=== PATIENT | female | born 1980 | race Two or more races ===

== ENCOUNTER 2018-04-09 00:03 | Emergency (ER) | payer BC ==
[2018-04-09] MEDS ORDERED: IPRATROPIUM/ALBUTEROL 0.5-2.5 MG/3 ML AMPUL NEB ONE (02:08)
[2018-04-09] MEDS ORDERED: METHYLPREDNISOLONE INJ 125 MG/2 ML SDV IV ONE (02:09)
[2018-04-09] MEDS ORDERED: NORMAL SALINE 1000 ML 1,000 ML IV ONE (02:09)
--- NOTE | 2018-04-09 02:15 | ER Document Report ---
ED General - General Chief Complaint: Cough Stated Complaint: DIFFICULTY BREATHING, COUGH Time Seen by Provider: 04/09/18 01:53 Notes: Patient is a 37-year-old female presented to the emergency department complaining of cough and congestion since yesterday. Patient also states she has a headache. Patient states she does have asthma and has taken her albuterol inhaler x8 today. Patient also admits to everyday cigarette smoking. Patient states she had pneumonia 6 months ago and was admitted for same. Pt. admits to subjective fever. Patient denies any vomiting or diarrhea. Denies dysuria or vaginal discharge. Patient states she has never been intubated for her asthma in the past. Past medical history: Asthma Medications: Albuterol Allergies: Latex Surgical history: Tonsillectomy Patient admits to cigarette smoking, denies illicit drug use or EtOH use. TRAVEL OUTSIDE OF THE [place] IN LAST 30 DAYS: No - Related Data Allergies/Adverse Reactions: latex Allergy (Verified 04/09/18 00:07) Past Medical History - General Information source: Patient - Social History Smoking Status: Current Every Day Smoker Frequency of alcohol use: None Drug Abuse: None Lives with: Family Family History: Reviewed & Not Pertinent Review of Systems - Review of Systems Constitutional: See HPI EENT: See HPI Cardiovascular: Dyspnea. denies: Chest pain, Palpitations Respiratory: See HPI Gastrointestinal: No symptoms reported Genitourinary: No symptoms reported Female Genitourinary: No symptoms reported Musculoskeletal: No symptoms reported Skin: No symptoms reported Hematologic/Lymphatic: No symptoms reported Neurological/Psychological: No symptoms reported Physical Exam - Vital signs Vitals: Temp Pulse Resp BP Pulse Ox 97.9 F 99 28 H 137/87 H 100 04/09/18 00:26 04/09/18 00:26 04/09/18 00:26 04/09/18 00:26 04/09/18 00:26 - Notes Notes: GENERAL: Alert, interacts well. Lying in bed in no obvious distress. Upon waking the patient up she becomes tachypneic and starts hyperventilating at a rate of 30. HEAD: Normocephalic, atraumatic. EYES: Pupils equal, round, and reactive to light. Extraocular movements intact. ENT: Oral mucosa moist, tongue midline. Nares patent, TM's intact, nonerythematous, nonbulging. Pharynx within normal limits, no exudate or palatal petechiae noted. NECK: Full range of motion. Supple. Trachea midline. LUNGS: End expiratory wheeze noted bilateral apices, diminished bilateral bases. Upon coaching she is able to settle her respiratory rate down to 24. HEART: Regular rate and rhythm. No murmur ABDOMEN: Soft, non-tender. Non-distended. Bowel sounds present in all 4 quadrants. EXTREMITIES: Moves all 4 extremities spontaneously. No edema, normal radial and dorsalis pedis pulses bilaterally. No cyanosis. BACK: no cervical, thoracic, lumbar midline tenderness. No saddle anesthesia, normal distal neurovascular exam. NEUROLOGICAL: Alert and oriented x3. Normal speech. cranial nerves II through XII grossly intact. PSYCH: Normal affect, normal mood. SKIN: Warm, dry, normal turgor. No rashes or lesions noted. Course - Re-evaluation Re-evalutation: 04/09/18 04:52 Patient states she feels a whole lot better. Patient states she no longer has any respiratory distress. Reassessment of lung sounds reveals clear lung sounds in all bah. No work of breathing. No tachycardia noted, continues without fever. Patient states she only has an albuterol inhaler and it is from her primary care provider in [place]. Patient is requesting a refill at this time. Discussed refilling her albuterol inhaler and giving her prednisone at this time. Return precautions discussed. Chest x-ray shows no signs of pneumonia, pneumothorax, fractures. - Vital Signs Vital signs: Temp Pulse Resp BP Pulse Ox 97.9 F 99 19 116/70 96 04/09/18 00:26 04/09/18 00:26 04/09/18 04:06 04/09/18 04:06 04/09/18 04:06 Discharge - Discharge Clinical Impression: Acute bronchospasm Upper respiratory infection Qualifiers: URI type: unspecified viral URI Qualified Code(s): J06.9 - Acute upper respiratory infection, unspecified Condition: Stable Disposition: HOME, SELF-CARE Instructions: Upper Respiratory Illness ([facility]), Viral Syndrome ([facility]), Bronchospasm ([facility]) Prescriptions: Albuterol Sulfate [Proair HFA Inhalation Aerosol 8.5 gm MDI] 2 puff IH Q4H PRN # 1 mdi PRN Reason: Prednisone [Deltasone 20 mg Tablet] 3 tab PO DAILY 5 Days tablet Referrals: ULISES LEMOS MD [Primary Care Provider] - Follow up as needed
--- NOTE | 2018-04-09 03:37 | RADIOLOGY REPORT (SQ) ---
CLINICAL HISTORY: SOB COMPARISON: None. TECHNIQUE: XR CHEST 2 VIEWS 04/09/2018 2:09 AM SEED PACKER FINDINGS: Cardiac silhouette is normal in size. Lungs are clear without consolidation, atelectasis, mass or edema. There is no pleural effusion. There is no pneumothorax. There are no acute osseous findings. IMPRESSION: Clear lungs.
[2018-04-09 05:10] VITALS: BP 106/63
== END 2018-04-09 05:17 | disposition home or self-care (01) ==
LOC: ER 00:03
DX: J45.909 Unspecified asthma, uncomplicated (principal); J06.9 Acute upper respiratory infection, unspecified; B97.89 Other viral agents as the cause of diseases classified elsewhere; R05 Cough; R51 Headache; Z79.899 Other long term (current) drug therapy; F17.210 Nicotine dependence, cigarettes, uncomplicated; Z87.01 Personal history of pneumonia (recurrent); Z91.040 Latex allergy status
CPT/HCPCS: 94640; 99283; 96361; 96374; 71046; J2930; J7030; J7620

== ENCOUNTER → 2019-03-17 | Outpatient (CLI) | payer BC ==
[2019-03-17 12:49] LABS: ABSOLUTE BASOPHILS # (AUTO) 0.1 10^3/uL (0.0-0.2); ABSOLUTE EOSINOPHILS # (AUTO) 0.1 10^3/uL (0.0-0.6); ABSOLUTE LYMPHOCYTES (AUTO) 2.4 10^3/uL (0.5-4.7); ABSOLUTE MONOCYTES (AUTO) 0.5 10^3/uL (0.1-1.4); ABSOLUTE NEUT (AUTO) 3.8 10^3/uL (1.7-8.2); BASOPHILS % (AUTO) 0.9 % (0-2); EOSINOPHILS % (AUTO) 1.8 % (0-6); HEMATOCRIT 29.1 % (36.0-47.0); HEMOGLOBIN 9.7 g/dL (12.0-15.5); LYMPHOCYTES % (AUTO) 34.7 % (13-45); MEAN CORPUSCULAR HEMOGLOBIN 24.4 pg (27.0-33.4); MEAN CORPUSCULAR HGB CONC 33.1 g/dL (32.0-36.0); MEAN CORPUSCULAR VOLUME 74 fl (80-97); MONOCYTES % (AUTO) 6.7 % (3-13); PLATELET COUNT 436 10^3/uL (150-450); RED BLOOD COUNT 3.96 10^6/uL (3.72-5.28); RED CELL DISTRIBUTION WIDTH 16.5 % (11.5-14.0); SEGMENTED NEUTROPHILS % (AUTO) 55.9 % (42-78); TOTAL CELLS COUNTED % (AUTO) 100 %; WHITE BLOOD COUNT 6.9 10^3/uL (4.0-10.5)
[2019-03-17 13:11] LABS: ALBUMIN 4.1 g/dL (3.5-5.0); ALKALINE PHOSPHATASE 82 U/L (38-126); ANION GAP 8 (5-19); ASPARTATE AMINO TRANSFERASE 27 U/L (14-36); BILIRUBIN,DIRECT 0.1 mg/dL (0.0-0.4); BILIRUBIN,TOTAL 0.3 mg/dL (0.2-1.3); BLOOD UREA NITROGEN 8 mg/dL (7-20); CALCIUM 8.9 mg/dL (8.4-10.2); CARBON DIOXIDE 28 mmol/L (22-30); CHLORIDE 101 mmol/L (98-107); GLUCOSE 91 mg/dL (75-110); POTASSIUM 4.2 mmol/L (3.6-5.0); TOTAL PROTEIN 7.3 g/dL (6.3-8.2)
[2019-03-17 13:23] LABS: FREE T3 3.95 pg/mL (2.77-5.27)
[2019-03-17 13:37] LABS: THYROID STIMULATING HORMONE 0.77 uIU/mL (0.47-4.68)
[2019-03-18 07:01] LABS: T3 UPTAKE (RESIN) 22 % (24-39)
== END ==
LOC: LAB 12:24
PROVIDERS: ATTEND Specialist
DX: N94.4 Primary dysmenorrhea (principal); N92.0 Excessive and frequent menstruation with regular cycle
CPT/HCPCS: 36415; 80053; 84436; 84443; 84479; 84481; 85025

== ENCOUNTER 2019-05-26 06:05 | Day surgery (SDC) | payer BC ==
[2019-05-16 11:04] LABS: MEAN CORPUSCULAR HEMOGLOBIN 21.4 pg (27.0-33.4); MEAN CORPUSCULAR HGB CONC 32.3 g/dL (32.0-36.0); MEAN CORPUSCULAR VOLUME 66 fl (80-97); PLATELET COUNT 397 10^3/uL (150-450); RED BLOOD COUNT 4.67 10^6/uL (3.72-5.28); RED CELL DISTRIBUTION WIDTH 17.6 % (11.5-14.0); WHITE BLOOD COUNT 8.2 10^3/uL (4.0-10.5)
[2019-05-16 11:08] LABS: APPEARANCE,URINE SLIGHTLY-CLOUDY; BILIRUBIN,URINE NEGATIVE (NEGATIVE); COLOR,URINE YELLOW; GLUCOSE, URINE NEGATIVE (NEGATIVE); KETONES,URINE NEGATIVE (NEGATIVE); LEUKOCYTE ESTERASE,URINE NEGATIVE (NEGATIVE); NITRITE,URINE NEGATIVE (NEGATIVE); PROTEIN,URINE NEGATIVE (NEGATIVE); URINE SPECIFIC GRAVITY 1.008; UROBILINOGEN,URINE NEGATIVE mg/dL (<2.0)
[2019-05-16 11:34] LABS: ANION GAP 9 (5-19); BLOOD UREA NITROGEN 10 mg/dL (7-20); CALCIUM 9.3 mg/dL (8.4-10.2); CARBON DIOXIDE 28 mmol/L (22-30); CHLORIDE 100 mmol/L (98-107); GLUCOSE 94 mg/dL (75-110); POTASSIUM 4.6 mmol/L (3.6-5.0)
[~2019-05-26 06:05] MED LIST: ALBUTEROL SULFATE 0.083% NEB 2.5 MG/3 ML AMPUL NEB PRN; CEFAZOLIN 1 GM/D5W RTU 1 GM/50 ML RTUPB IV ONE; CEFAZOLIN 1 GM/D5W RTU 1 GM/50 ML RTUPB IV PRN; LACTATED RINGERS 1000 ML IV PRN; LIDOCAINE 0.5% INJ-PF (5 MG/ML) 50 ML SDV SUBCUT PRN
[2019-05-26] MEDS ORDERED: ALBUTEROL SULFATE 0.083% NEB 2.5 MG/3 ML AMPUL NEB ONE (06:13)
[2019-05-26] MEDS ORDERED: LIDOCAINE 1% INJ-PF (10 MG/ML) 30 ML SDV ONE (07:29)
[2019-05-26] MEDS ORDERED: PROPOFOL INJ 200 MG/20 ML VIAL IV ONE ×2 (07:50→07:51)
[2019-05-26] MEDS ORDERED: MIDAZOLAM 2 MG/2 ML INJ ONE (07:50)
[2019-05-26] MEDS ORDERED: KETAMINE HCL INJ 500 MG/10 ML VIAL ONE (07:50)
[2019-05-26] MEDS ORDERED: FENTANYL CITRATE INJ/PF 100 MCG/2 ML AMPUL ONE (07:50)
[2019-05-26] MEDS ORDERED: DIPHENHYDRAMINE HCL 50 MG/ML VIAL IV PRN (08:10)
[2019-05-26] MEDS ORDERED: MORPHINE SULFATE 10 MG/ML INJ IV PRN (08:10)
[2019-05-26] MEDS ORDERED: MEPERIDINE HCL/PF INJ 25 MG/1 ML DISP.SYRIN IV PRN (08:10)
[2019-05-26] MEDS ORDERED: FENTANYL CITRATE INJ/PF 100 MCG/2 ML AMPUL IV PRN ×3 (08:10)
[2019-05-26] MEDS ORDERED: PROMETHAZINE HCL INJ 25 MG/1 ML VIAL IV PRN ×2 (08:10)
[2019-05-26] MEDS ORDERED: OXYCODONE-ACETAMINOPHEN 5-325 MG TABLET ONE (09:26)
--- NOTE | 2019-05-26 09:28 | Operative Report ---
Operative Report DATE OF SURGERY: 05/26/19 PREOPERATIVE DIAGNOSIS: Menorrhagia POSTOPERATIVE DIAGNOSIS: Same OPERATION: Hysteroscopy NovaSure ablation SURGEON: ULISES LEMOS ANESTHESIA: LMAC TISSUE REMOVED OR ALTERED: None COMPLICATIONS: None ESTIMATED BLOOD LOSS: 5 mL's INTRAOPERATIVE FINDINGS: Normal endometrial cavity no polyps or fibroids noted PROCEDURE: INDICATIONS FOR PROCEDURE: The patient had abnormal uterine bleeding for several months unresponsive to usual outpatient management. The usual risks of bleeding, infection, anesthesia, and damage to organs and tissues had been discussed with the patient and understood. PROCEDURE: The patient was taken to the operating room, placed in a modified lithotomy position. After adequate anesthesia was ascertained, we prepped and draped in the usual manner for a hysteroscopy . Paracervical block done. The cervix readily admitted dilators. A single-tooth tenaculum was placed on the anterior lip of the cervix after anesthesia was instilled. Hysteroscopy ensued. A endometrial cavity was noted and novasure device deployed, integrity confirmed and fired rehysteroscopy demonstrated good burn throughout. 5.5L x 2.9 W
[2019-05-26] MEDS ORDERED: OXYCODONE-ACETAMINOPHEN 5-325 MG TABLET PO PRN (09:30)
[2019-05-26] MEDS ORDERED: PROMETHAZINE HCL INJ 25 MG/1 ML VIAL IM PRN (09:30)
[2019-05-26] MEDS ORDERED: MORPHINE INJ 4 MG DOSE (EDIT ROUTE) IM PRN ×2 (09:30→09:49)
[2019-05-26] MEDS ORDERED: KETOROLAC TROMETHAMINE 60 MG/2 ML SDV ONE (10:17)
[2019-05-26] MEDS ORDERED: ONDANSETRON HCL INJ/PF 4 MG/2 ML SDV ONE (10:17)
[2019-05-26 11:12] VITALS: BP 158/97
[2019-05-26] MEDS ORDERED: IBUPROFEN 800 MG TABLET PO SCH (14:00)
== END 2019-05-26 11:00 | disposition home or self-care (01) ==
LOC: OROUT 06:05
PROVIDERS: ATTEND Specialist
DX: N92.0 Excessive and frequent menstruation with regular cycle (principal); E66.9 Obesity, unspecified; Z91.040 Latex allergy status; J45.909 Unspecified asthma, uncomplicated
CPT/HCPCS: 86900; 86901; 36415; 86850; 85027; 81025; 80048; 81001; 58563; J2250; J0690; J1885; J3010; J3490 ×2; J2405; J2704

== ENCOUNTER → 2019-12-02 | Outpatient (CLI) | payer BC ==
[2019-12-02 11:49] LABS: ABSOLUTE BASOPHILS # (AUTO) 0.1 10^3/uL (0.0-0.2); ABSOLUTE EOSINOPHILS # (AUTO) 0.2 10^3/uL (0.0-0.6); ABSOLUTE LYMPHOCYTES (AUTO) 3.6 10^3/uL (0.5-4.7); ABSOLUTE MONOCYTES (AUTO) 0.5 10^3/uL (0.1-1.4); ABSOLUTE NEUT (AUTO) 4.2 10^3/uL (1.7-8.2); BASOPHILS % (AUTO) 0.8 % (0-2); EOSINOPHILS % (AUTO) 2.8 % (0-6); HEMATOCRIT 37.2 % (36.0-47.0); HEMOGLOBIN 12.7 g/dL (12.0-15.5); LYMPHOCYTES % (AUTO) 41.5 % (13-45); MEAN CORPUSCULAR HEMOGLOBIN 26.4 pg (27.0-33.4); MEAN CORPUSCULAR VOLUME 78 fl (80-97); PLATELET COUNT 382 10^3/uL (150-450); RED CELL DISTRIBUTION WIDTH 15.3 % (11.5-14.0); SEGMENTED NEUTROPHILS % (AUTO) 48.9 % (42-78); TOTAL CELLS COUNTED % (AUTO) 100 %; WHITE BLOOD COUNT 8.7 10^3/uL (4.0-10.5)
[2019-12-02 12:00] LABS: ALBUMIN 4.1 g/dL (3.5-5.0); ALKALINE PHOSPHATASE 89 U/L (38-126); ANION GAP 6 (5-19); ASPARTATE AMINO TRANSFERASE 28 U/L (14-36); BILIRUBIN,TOTAL 0.4 mg/dL (0.2-1.3); BLOOD UREA NITROGEN 14 mg/dL (7-20); CARBON DIOXIDE 27 mmol/L (22-30); CHLORIDE 103 mmol/L (98-107); CHOLESTEROL 245.76 mg/dL (0-200); GLUCOSE 102 mg/dL (75-110); POTASSIUM 4.1 mmol/L (3.6-5.0); TRIGLYCERIDES 210 mg/dL (<150)
[2019-12-02 12:13] LABS: DIRECT LDL 151 mg/dL (<100)
[2019-12-02 13:08] LABS: FOLATE > 20.00 ng/mL (>2.76)
== END ==
LOC: OD 10:35
PROVIDERS: ATTEND Nurse Practitioner Family
DX: L83 Acanthosis nigricans (principal); E04.9 Nontoxic goiter, unspecified; E78.5 Hyperlipidemia, unspecified; E55.9 Vitamin D deficiency, unspecified; R20.0 Anesthesia of skin
CPT/HCPCS: 36415; 80053; 80061; 82306; 82607; 82746; 83036; 83735; 85025; 86376

== ENCOUNTER 2020-02-04 12:20 | Day surgery (SDC) | payer BC ==
[2020-01-30 14:16] LABS: HEMOGLOBIN 12.4 g/dL (12.0-15.5); MEAN CORPUSCULAR HEMOGLOBIN 26.7 pg (27.0-33.4); MEAN CORPUSCULAR HGB CONC 34.5 g/dL (32.0-36.0); MEAN CORPUSCULAR VOLUME 77 fl (80-97); PLATELET COUNT 303 10^3/uL (150-450); RED BLOOD COUNT 4.65 10^6/uL (3.72-5.28); RED CELL DISTRIBUTION WIDTH 15.7 % (11.5-14.0); WHITE BLOOD COUNT 8.8 10^3/uL (4.0-10.5)
[2020-01-30 14:39] LABS: ANION GAP 11 (5-19); BLOOD UREA NITROGEN 13 mg/dL (7-20); CALCIUM 9.2 mg/dL (8.4-10.2); CARBON DIOXIDE 23 mmol/L (22-30); CHLORIDE 103 mmol/L (98-107); GLUCOSE 97 mg/dL (75-110); POTASSIUM 4.1 mmol/L (3.6-5.0)
--- NOTE | 2020-01-30 21:18 | EKG REPORT ---
SEVERITY:- NORMAL ECG - SINUS RHYTHM : Confirmed by: Audrey Brown MD 30-Jan-2020 21:18:08
[~2020-02-04 12:20] MED LIST changes: -ALBUTEROL SULFATE 0.083% NEB 2.5 MG/3 ML AMPUL NEB PRN; -CEFAZOLIN 1 GM/D5W RTU 1 GM/50 ML RTUPB IV ONE; -CEFAZOLIN 1 GM/D5W RTU 1 GM/50 ML RTUPB IV PRN; +CEFAZOLIN 2 GM/D5W RTU 2 GM/50 ML RTUPB IV PRN; +DEXAMETHASONE SOD PHOSPHATE INJ 4 MG/1 ML VIAL ONE; -LACTATED RINGERS 1000 ML IV PRN; +LIDOCAINE 2% INJ-PF (20 MG/ML) 2 ML AMPUL ONE; +METOCLOPRAMIDE HCL INJ/PF 10 MG/2 ML SDV ONE; +ONDANSETRON HCL INJ/PF 4 MG/2 ML SDV ONE; +PHENYLEPHRINE HCL INJ/PF 10 MG/1 ML SDV ONE; +SUCCINYLCHOLINE CHLORIDE INJ 200 MG/10 ML VIAL ONE
[2020-02-04] MEDS ORDERED: CEFAZOLIN 2 GM/D5W RTU 2 GM/50 ML RTUPB IV ONE (13:03)
[2020-02-04] MEDS: LACTATED RINGERS 1000 ML IV PRN ×2 (13:15→19:00)
[2020-02-04] MEDS ORDERED: MIDAZOLAM 2 MG/2 ML INJ ONE (13:50)
[2020-02-04] MEDS ORDERED: FENTANYL CITRATE INJ/PF 100 MCG/2 ML AMPUL ONE (13:50)
[2020-02-04] MEDS ORDERED: HYDROMORPHONE HCL INJ/PF 2 MG/ML AMPULE ONE (13:51)
[2020-02-04] MEDS ORDERED: PROPOFOL INJ 200 MG/20 ML VIAL IV ONE (13:51)
[2020-02-04] MEDS ORDERED: BUPIVACAINE HCL 0.5%/EPI 1:200000 INJ 1.8 ML CARTRIDGE ONE (13:53)
[2020-02-04] MEDS ORDERED: OXYMETAZOLINE HCL 0.05% NASAL SPRAY 15 ML BOTTLE ONE (13:53)
[2020-02-04] MEDS ORDERED: LIDOCAINE 2%/EPINEPHRINE INJ 1.7 ML CARTRIDGE ONE (13:53)
[2020-02-04 14:16] LABS: ALBUMIN 4.2 g/dL (3.5-5.0); CALCIUM 8.9 mg/dL (8.4-10.2)
[2020-02-04] MEDS ORDERED: DIPHENHYDRAMINE HCL 50 MG/ML VIAL IV PRN (14:37)
[2020-02-04] MEDS ORDERED: PROMETHAZINE HCL INJ 25 MG/1 ML VIAL IV PRN ×2 (14:37)
[2020-02-04] MEDS ORDERED: FENTANYL CITRATE INJ/PF 100 MCG/2 ML AMPUL IV PRN ×3 (14:37)
[2020-02-04] MEDS ORDERED: ONDANSETRON HCL INJ/PF 4 MG/2 ML SDV IV PRN (14:37)
[2020-02-04] MEDS ORDERED: MEPERIDINE HCL/PF INJ 25 MG/1 ML DISP.SYRIN IV PRN (14:37)
[2020-02-04] MEDS ORDERED: OXYCODONE-ACETAMINOPHEN 5-325 MG TABLET PO PRN ×2 (14:37)
[2020-02-04] MEDS ORDERED: ACETAMINOPHEN 325 MG TABLET PO PRN ×2 (17:45→18:38)
[2020-02-04] MEDS ORDERED: MORPHINE SULFATE 10 MG/ML INJ IV PRN (18:38)
[2020-02-04] MEDS: HYDROCODONE/ACETAMINOPHEN 5-325 MG TABLET PO PRN (20:15)
[2020-02-04 20:54] LABS: ALBUMIN 4.3 g/dL (3.5-5.0); CALCIUM 8.5 mg/dL (8.4-10.2); PHOSPHORUS 3.5 mg/dL (2.5-4.5)
--- NOTE | 2020-02-04 21:38 | Operative Report ---
Operative Report-[facility] Operative Report: Date of procedure: February 04, 2020 Preoperative diagnoses: 1. Right thyroid nodule papillary thyroid cancer as diagnosed by fine-needle aspiration biopsy 2. Multinodular goiter Postoperative diagnoses: 1. Right thyroid nodule papillary thyroid cancer as diagnosed by fine-needle aspiration biopsy 2. Multinodular goiter Operation performed: 1. Total Thyroidectomy (CPT CODE 11634) 2. Intraoperative nerve monitoring (NIM) Primary Surgeon of Record: Dr. Jhonny Bhakta Assisting surgeon: Dr. Toro Del Cid Anesthetic: General endotracheal tube anesthesia Anesthesia provider: JENNY Mccollum Estimated blood loss: 20 mL Fluids: 2000 mL Urine output: Complications: None Drains: None Sponge count: Verified Needle Count: Verified Materials forwarded as specimen: 1. Total thyroid gland with marking suture at the right thyroid lobe which contain the dominant right thyroid nodule Findings: 1. Multinodular goiter with a right dominant thyroid nodule. 2. Bilateral parathyroid gland prospects were identified and preserved. 3. The bilateral recurrent laryngeal nerves were noted to be deeper within the tissue and these areas were preserved and not disruptive during the case. 4. There were was no surrounding lymphadenopathy or other findings of concern. Indications: This is a 39-year-old female patient patient who has been seen and evaluated [place] [facility]. The patient had been referred by Dr. Haley with history of a multinodular goiter with right dominant nodule that was [place] category 6 on FNAB for papillary thyroid cancer. There was an extensive discussion held with the patient with plan made to proceed with a total thyroidectomy versus a right thyroid lobectomy with possible left thyroid lobe completion which the patient verbalized a clear understanding of and preferred to proceed with a total thyroidectomy. The patient voiced an understanding of her medical findings to include relating to her thyroid disorder and desired proceed with a total thyroidectomy. The patient voiced an understanding of the procedure/surgery and all of the risks and complications, and consent was obtained. Procedure: The patient was taken to the main operating room and placed on the operating room table in the supine position. Appropriate monitors were placed. Using mask and IV access, general anesthesia was induced. The patient was next transorally intubated without difficulty. The patient was then positioned for thyroid surgery. The patient's anterior neck had a planned incision site marked with a surgical marking pen followed by infiltration with local anesthetic with epinephrine. The patient was then prepped and draped in a sterile fashion for thyroid surgery. Next, an incision was made down through the level of the subcutaneous tissues and platysma. Using blunt and sharp dissection as well as Bovie and bipolar electrocautery skin/soft tissue flaps were elevated in a sub- platysmal fashion without difficulty. The strap muscles were next identified and the midline was divided allowing the strap muscles to be mobilized and reflected laterally. Attention was turned to the left side, and dissection proceeded utilizing blunt and sharp dissection. Findings are as noted above. The superior and inferior poles of the thyroid lobe were clearly identified. The vasculature in these areas was clearly identified and divided using bipolar electrocautery and/or the Harmonic handpiece. During this process of mobilizing the left thyroid lobe there were parathyroid gland prospects that were identified and preserved. At this point the thyroid gland was released from the area of Plata's ligament and mobilized onto the anterior tracheal wall. Next, the neck was thoroughly irrigated and suctioned. Additional hemostasis was provided with bipolar electrocautery. Findings were also as noted above. At this point, the right strap muscles were addressed in a similar manner. Dissection proceeded utilizing blunt and sharp dissection. The right strap muscles were reflected laterally. Findings are as noted above. The superior and inferior poles of the thyroid lobe were clearly identified. The vasculature in these areas was clearly identified as on the left. During this process of mobilizing the right thyroid lobe there were parathyroid gland prospects that were identified and preserved. At this point the thyroid gland was released from the area of Plata's ligament and mobilized onto the anterior tracheal wall and removed. Next, the neck was thoroughly irrigated and suctioned. Additional hemostasis was provided with bipolar electrocautery. Findings were also as noted above. Adequate hemostasis was noted and the strap muscles were re-approximated in the midline with Vicryl suture. The platysma was also re-approximated with Vicryl suture. 5-0 Monocryl suture was next utilized for re-approximation of the deep dermal tissue layer and for re-approximation of the skin margins via a continuous dermal suture. Next, the skin was cleaned and dried followed by placement of Mastisol, Steri- Strips, and a fluffs pressure dressing. The patient was then returned to the anesthesia staff and was allowed to emerge from general anesthesia. The patient was extubated in the main operating room and was then transported to the post- anesthesia recovery unit in stable condition. There were no complications.
[2020-02-04] MEDS: MORPHINE SULFATE 10 MG/ML INJ IV PRN (23:00)
[2020-02-05] MEDS: HYDROCODONE/ACETAMINOPHEN 5-325 MG TABLET PO PRN ×2 (07:00→17:33)
[2020-02-05 08:44] LABS: ALBUMIN 3.9 g/dL (3.5-5.0); CALCIUM 8.4 mg/dL (8.4-10.2); PHOSPHORUS 4.9 mg/dL (2.5-4.5)
[2020-02-05] MEDS: MORPHINE SULFATE 10 MG/ML INJ IV PRN (09:23)
[2020-02-05] MEDS ORDERED: INFLUENZA QUAD (6MOS+) 2020-21 VAC 0.5 ML SYR IM ONE (09:45)
[2020-02-05 15:39] LABS: ALBUMIN 3.8 g/dL (3.5-5.0); CALCIUM 8.4 mg/dL (8.4-10.2); PHOSPHORUS 4.5 mg/dL (2.5-4.5)
[2020-02-05 18:59] VITALS: BP 146/84
== END 2020-02-05 19:17 | disposition home or self-care (01) ==
LOC: OROUT 12:20 → 4W 18:20 → OROUT 02-05 19:17
PROVIDERS: ATTEND Otolaryngology
DX: C73 Malignant neoplasm of thyroid gland (principal); E04.2 Nontoxic multinodular goiter; G47.33 Obstructive sleep apnea (adult) (pediatric); J45.909 Unspecified asthma, uncomplicated; E66.9 Obesity, unspecified; Z79.899 Other long term (current) drug therapy; Z03.818 Encounter for observation for suspected exposure to other biological agents ruled out; Z87.891 Personal history of nicotine dependence
CPT/HCPCS: 60240; 93005; 36415 ×2; 82040; 82310; 83735; 84100; 85027; 81025; 80048; 83970; 88307 ×2; 93010; 00320; C1758; U0003; J2250; J3490 ×4; J1100; J3010; J2765; J2270 ×2; J1170; J2370; J0330; J2405; J7120; J2704; J0690; C9803; 320; 87635

== ENCOUNTER → 2020-03-06 | Outpatient (CLI) | payer BC ==
--- NOTE | 2020-03-06 10:00 | ER RDC ASSESSMENT REPORT ---
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 - Symptoms Subjective Fever([place] feverish): No Chills: No Muscule Aches: No Runny Nose: No Sore Throat: No Cough (New or worsening chronic cough): Yes Shortness of breath: No Nausea or Vomiting: Yes Headache: Yes Abdominal Pain: No Diarrhea(3 or more loose stools in last 24 hours): No - Do you have any of the following Chronic lung disease: Asthma or emphysema or COPD: Yes Chronic Lung Disease Comment: Asthma Cystic Fibrosis: No Diabetes: No High Blood Pressure: No Cardiovascular Disease: No Chronic Kidney Disease: No Chronic Liver Disease: No Chronic blood disorder like Sickle Cell Disease: No Weak immune system due to disease or medication: No Neurologic condition that limits movement: No Developmental delay - Moderate to Severe: No Recent (within past 2 weeks) or current : No Morbid Obesity (>100 pounds over ideal weight): No Other Comment: She reports history of hypothyroid and bipolar. - Objective Temperature: 98.6 F Pulse Rate: 96 Respiratory Rate: 16 Blood Pressure: 129/82 O2 Sat by Pulse Oximetry: 95 Objective: Patient is a well-appearing 39-year-old female, who presents today for COVID-19 screening. Disposition: Home; Selfcare General - General Stated Complaint: Upper respiratory symptoms Mode of Arrival: Ambulatory Information source: Patient Notes: The patient was evaluated during the global COVID-19 pandemic. That diagnosis was suspected/considered upon initial presentation. Their evaluation, treatment, and testing was consistent with current guidelines for patients who present with complaints or symptoms that may be related to COVID-19. Patient reports having close contact exposure to a COVID-19 lab confirmed positive individual. - HPI Patient complains to provider of: Upper respiratory symptoms Onset: Last week Onset/Duration: Constant, Persistent, Worse Quality of pain: No pain Severity: None Pain Level: Denies Associated symptoms: Nonproductive cough, Headache, Nausea Exacerbated by: Denies Relieved by: Denies Similar symptoms previously: No Recently seen / treated by doctor: No - Related Data Allergies/Adverse Reactions: latex Allergy (Verified 02/04/20 13:52) HIVES, SWELLING Past Medical History - Social History Smoking Status: Former Smoker Cigarette use (# per day): No - Quit smoking 3 years ago Chew tobacco use (# tins/day): No Smoking Education Provided: Yes Frequency of alcohol use: Occasional Drug Abuse: None Occupation: fiberglass technician Lives with: Family Family History: Reviewed & Not Pertinent Patient has suicidal ideation: No Patient has homicidal ideation: No - Past Medical History Cardiac Medical History: Denies: Hx Coronary Artery Disease, Hx Heart Attack, Hx Hypertension Pulmonary Medical History: Reports: Hx Asthma - MILD/ SEASONAL, Hx Bronchitis Denies: Hx COPD, Hx Pneumonia Neurological Medical History: Denies: Hx Cerebrovascular Accident, Hx Seizures Renal/ Medical History: Denies: Hx Peritoneal Dialysis Musculoskeletal Medical History: Denies Hx Arthritis Psychiatric Medical History: Denies: Hx Depression Physical Exam - General General appearance: Appears well In distress: None Notes: PHYSICAL EXAMINATION: GENERAL: Well-appearing with No Acute Distress noted. HEAD: Atraumatic, Normocephalic. EYES: Sclera anicteric, Conjunctiva are pink and moist. ENT: Nares patent. Moist mucous membranes. NECK: Normal range of motion, supple without lymphadenopathy. LUNGS: CTAB and equal. No wheezes rales or rhonchi. HEART: Regular rate and rhythm without murmurs. ABDOMEN: Soft, nontender, normal bowel sounds, no guarding. EXTREMITIES: Normal range of motion, no pitting edema. No cyanosis. BACK: No midline or CVA tenderness. No step-off or deformity. NEUROLOGICAL: Cranial nerves grossly intact. Normal speech. Normal gait. PSYCH: Calm, Cooperative, and answers questions appropriately. Normal mood and affect. SKIN: Warm, Dry, Normal color and Turgor, No obvious lesions or rash noted. Diagnostic Results Laboratory Results: Patient notified of NEGATIVE results on Rapid Flu (A & B) and Rapid Strep. Advised Throat Culture and COVID testing are PENDING, and they will be notified of any POSITIVE culture results at a later date/time. Patient has been made aware that is currently taking 3 to 5 days for COVID test results, and that The [facility] Department will call to notify them of a POSITIVE COVID-19 test results and a member of the [facility] team will call to notify them of a NEGATIVE COVID-19 result. Patient aware they will be notified by phone, whether they have a NEGATIVE or POSITIVE COVID-19 result. Patient Education/Counseling Counseling/Education: Patient presents with upper respiratory symptoms worrisome for possible COVID- 19. Patient does not have symptoms worrisome as an emergency such as difficulty breathing, shortness of breath, chest pain, pressure, confusion or cyanosis. Patient appears suitable for discharge. Patient's vital signs are stable and patient is nontoxic in appearance. Good return precautions have been discussed with patient, patient verbalized understanding and is agreeable with discharge plan of care at this time. Patient provided COVID-19 discharge instructions to include: As a person under investigation for COVID-19, the [facility] and Human Services, division of public health advises you to adhere to the following guidance until your test results are reported to you. If your test result is positive, you will receive additional information from your provider and your local health department at that time. Remain at home until you are cleared by the health provider or public health authorities. Keep a log of visitors to your home, notify any visitors to your home of your isolation status. If you plan to move to a new address or leave the county, notify the local health department in your County. Call your doctor or seek care if you have an urgent medical need. Before seeking medical care, call ahead to get instructions from the provider before arriving at the medical office clinic or hospital. Notify them that you are being tested for the virus that causes COVID-19 so that arrangements can be made, as necessary, to prevent transmission to others in the healthcare setting. Next, notify the local health department in your county. If a medical emergency arises and you need to call 911, inform dispatch and the first responders that you are being tested for the virus that causes COVID-19. Next, notify the local health department in your county. Patient provided education on smoking cessation and the harmful effects of smoking, especially in the presence of Co-morbid conditions such as Hypertension, Diabetes, and/or other chronic illnesses. Patient verbalized understanding of smoking cessation education, and the increased health benefits of quitting. Guidance for worsening S/SX: For worsening symptoms, patient has been advised to contact their Primary Care Provider, or go to the nearest Emergency Department. RDC Discharge - Discharge Clinical Impression: COVID-19 Screening URI (upper respiratory infection) Qualifiers: URI type: unspecified URI Qualified Code(s): J06.9 - Acute upper respiratory infection, unspecified Condition: Stable Disposition: Home; Selfcare
[2020-03-06 10:05] VITALS: BP 129/82
[2020-03-06 12:34] LABS: A TYPE INFLUENZA AG NEGATIVE (NEGATIVE); B INFLUENZA AG NEGATIVE (NEGATIVE)
== END ==
LOC: RDC 09:13
PROVIDERS: ATTEND Nurse Practitioner Family
DX: J06.9 Acute upper respiratory infection, unspecified (principal); Z20.828 Contact with and (suspected) exposure to other viral communicable diseases; R05 Cough; R11.2 Nausea with vomiting, unspecified; R51.9 Headache, unspecified
CPT/HCPCS: 87070; 87880; 87804; U0003; C9803; 87635

== ENCOUNTER → 2020-03-11 | Outpatient (CLI) | payer BC ==
[2020-03-11 13:00] LABS: ABSOLUTE BASOPHILS # (AUTO) 0.1 10^3/uL (0.0-0.2); ABSOLUTE EOSINOPHILS # (AUTO) 0.1 10^3/uL (0.0-0.6); ABSOLUTE LYMPHOCYTES (AUTO) 2.2 10^3/uL (0.5-4.7); ABSOLUTE MONOCYTES (AUTO) 0.5 10^3/uL (0.1-1.4); ABSOLUTE NEUT (AUTO) 4.5 10^3/uL (1.7-8.2); BASOPHILS % (AUTO) 0.8 % (0-2); EOSINOPHILS % (AUTO) 1.3 % (0-6); HEMATOCRIT 38.4 % (36.0-47.0); HEMOGLOBIN 13.3 g/dL (12.0-15.5); LYMPHOCYTES % (AUTO) 30.4 % (13-45); MEAN CORPUSCULAR HEMOGLOBIN 27.1 pg (27.0-33.4); MEAN CORPUSCULAR HGB CONC 34.7 g/dL (32.0-36.0); MEAN CORPUSCULAR VOLUME 78 fl (80-97); MONOCYTES % (AUTO) 6.6 % (3-13); PLATELET COUNT 276 10^3/uL (150-450); RED BLOOD COUNT 4.92 10^6/uL (3.72-5.28); RED CELL DISTRIBUTION WIDTH 15.2 % (11.5-14.0); SEGMENTED NEUTROPHILS % (AUTO) 60.9 % (42-78); TOTAL CELLS COUNTED % (AUTO) 100 %; WHITE BLOOD COUNT 7.3 10^3/uL (4.0-10.5)
[2020-03-11 13:13] LABS: ALBUMIN 4.5 g/dL (3.5-5.0); ALKALINE PHOSPHATASE 134 U/L (38-126); ANION GAP 13 (5-19); ASPARTATE AMINO TRANSFERASE 79 U/L (14-36); BILIRUBIN,DIRECT 0.2 mg/dL (0.0-0.4); BILIRUBIN,TOTAL 0.6 mg/dL (0.2-1.3); BLOOD UREA NITROGEN 7 mg/dL (7-20); CALCIUM 10.1 mg/dL (8.4-10.2); CARBON DIOXIDE 26 mmol/L (22-30); CHLORIDE 100 mmol/L (98-107); CHOLESTEROL 206.74 mg/dL (0-200); GLUCOSE 97 mg/dL (75-110); POTASSIUM 4.6 mmol/L (3.6-5.0); TOTAL PROTEIN 7.7 g/dL (6.3-8.2); TRIGLYCERIDES 292 mg/dL (<150)
[2020-03-11 13:24] LABS: DIRECT LDL 124 mg/dL (<100)
[2020-03-11 13:26] LABS: VLDL CHOLESTEROL 58.4 mg/dL (10-31)
== END ==
LOC: OD 11:33
PROVIDERS: ATTEND Nurse Practitioner Psychiatric/Mental Health
DX: F33.1 Major depressive disorder, recurrent, moderate (principal); F41.1 Generalized anxiety disorder; F43.10 Post-traumatic stress disorder, unspecified; F90.0 Attention-deficit hyperactivity disorder, predominantly inattentive type; F60.3 Borderline personality disorder
CPT/HCPCS: 36415; 80053; 80061; 84443; 85025

== ENCOUNTER → 2020-04-21 | Outpatient (CLI) | payer BC ==
[2020-04-21 10:59] LABS: ABSOLUTE EOSINOPHILS # (AUTO) 0.1 10^3/uL (0.0-0.6); ABSOLUTE MONOCYTES (AUTO) 0.3 10^3/uL (0.1-1.4); ABSOLUTE NEUT (AUTO) 5.7 10^3/uL (1.7-8.2); BASOPHILS % (AUTO) 0.5 % (0-2); EOSINOPHILS % (AUTO) 1.7 % (0-6); HEMATOCRIT 39.1 % (36.0-47.0); LYMPHOCYTES % (AUTO) 24.3 % (13-45); MEAN CORPUSCULAR HEMOGLOBIN 26.2 pg (27.0-33.4); MEAN CORPUSCULAR HGB CONC 33.2 g/dL (32.0-36.0); MEAN CORPUSCULAR VOLUME 79 fl (80-97); MONOCYTES % (AUTO) 4.2 % (3-13); PLATELET COUNT 351 10^3/uL (150-450); RED BLOOD COUNT 4.95 10^6/uL (3.72-5.28); RED CELL DISTRIBUTION WIDTH 14.6 % (11.5-14.0); SEGMENTED NEUTROPHILS % (AUTO) 69.3 % (42-78); TOTAL CELLS COUNTED % (AUTO) 100 %; WHITE BLOOD COUNT 8.2 10^3/uL (4.0-10.5)
[2020-04-21 11:25] LABS: ANION GAP 9 (5-19); BLOOD UREA NITROGEN 10 mg/dL (7-20); CALCIUM 9.4 mg/dL (8.4-10.2); CARBON DIOXIDE 27 mmol/L (22-30); CHLORIDE 100 mmol/L (98-107); GLUCOSE 130 mg/dL (75-110)
[2020-04-21 11:39] LABS: FREE T3 3.41 pg/mL (2.77-5.27); FREE T4 (FREE THYROXINE) 1.28 ng/dL (0.78-2.19)
[2020-04-21 11:52] LABS: THYROID STIMULATING HORMONE 0.21 uIU/mL (0.47-4.68)
== END ==
LOC: OD 09:31
PROVIDERS: ATTEND Internal Medicine Endocrinology, Diabetes & Metabolism
DX: C73 Malignant neoplasm of thyroid gland (principal); E89.0 Postprocedural hypothyroidism
CPT/HCPCS: 36415; 80048; 84439; 84443; 84481; 85025